=== PATIENT | female | born 1975 | race Caucasian/White ===

== ENCOUNTER 2019-07-17 13:06 | Outpatient (CLI) | payer BC, MEDICAID, SELFPAY ==
--- NOTE | ~2019-07-17 | MMUS_ITS ---
EXAMINATION: MM diagnostic leela BI w agatha, US breast BI complete HISTORY: 2 right breast lumps and one left breast lump TECHNIQUE: ML, MLO and craniocaudal 3-D tomosynthesis images of both breasts were performed and synth etic 2-D images were generated. CAD analysis was submitted and interpreted. High resolution complete bilateral breast ultrasound was performed. COMPARISON: 10/20/2018 diagnostic left digital mammogram 09/22/2018 bilateral digital screening mammogram 07/26/2016 bilateral digital screening mammogram BREAST PARENCHYMAL COMPOSITION: There are scattered areas of fibroglandular density. FINDINGS: MAMMOGRAPHIC FINDINGS: No suspicious mass, architectural distortion, malignant calcification, skin thickening or retraction or significant new or developing density of either breast is evident compared to prior examinations. ULTRASOUND: Given the history of bilateral breast lumps, complete bilateral breast ultrasound examination was per formed. Scattered bilateral subcentimeter hypoechoic and sonolucent lesions are noted, without suspicious int ernal vascularity or shadowing, the largest on the right at 10:00 measuring up to 5 mm, largest on th e left at 12:00, measuring up to 5 mm. IMPRESSION: 1. No mammographic evidence of malignancy 2. . Routine annual mammographic screening follow-up is recommended BI-RADS Category 2: Benign finding(s). Reviewed, dictated and finalized at location A. SPOTTER IMPRESSION: 1. No mammographic evidence of malignancy 2. . Routine annual mammographic screening follow-up is recommended BI-RADS Category 2: Benign finding(s).
== END 2019-07-17 13:07 | disposition home or self-care (01) ==
LOC: ANHIMG 13:18
PROVIDERS: Visit Provider Nurse Practitioner Obstetrics & Gynecology
DX: N63.10 Unspecified lump in the right breast, unspecified quadrant (principal); N63.20 Unspecified lump in the left breast, unspecified quadrant
CPT/HCPCS: 76641; 77062; 77066; G0279

== ENCOUNTER 2020-05-10 08:51 | Outpatient (CLI) | payer BC, MEDICAID, SELFPAY ==
--- NOTE | ~2020-05-10 | XR_ITS ---
[id number] 05/10/2020 09:24 Indication: Neck pain radiating to the left shoulder. No recent trauma Procedure: 3 views of the cervical spine Comparison: No prior studies for comparison. Findings: Normal cervical alignment. No fracture or traumatic malalignment. No prevertebral soft tiss ue swelling. Odontoid process within normal limits. Mild facet degenerative changes are present. Lung apices are normal. Impression: 1: Mild cervical spondylosis. Reviewed, dictated and finalized at location A. L SAMPLER Impression: 1: Mild cervical spondylosis.
== END 2020-05-10 08:52 | disposition home or self-care (01) ==
PROVIDERS: PCP Physician Assistant; Visit Provider Physician Assistant
DX: M25.519 Pain in unspecified shoulder (principal); M54.2 Cervicalgia; E66.9 Obesity, unspecified; M47.812 Spondylosis without myelopathy or radiculopathy, cervical region
CPT/HCPCS: 72040

== ENCOUNTER 2020-05-15 08:16 | Outpatient (CLI) | payer BC, MEDICAID, SELFPAY ==
--- NOTE | ~2020-05-15 | XR_ITS ---
EXAMINATION: XR shoulder LT min 2V INDICATION: Left shoulder pain TECHNIQUE: Four views of the left shoulder are submitted. COMPARISON: None FINDINGS: Normal alignment. No fracture. Glenohumeral and acromioclavicular joint spaces are normal. Soft tissues are unremarkable. IMPRESSION: 1. No acute osseous abnormality. Reviewed, dictated and finalized at location A. AIN ENGINEER
[2020-05-15 09:06] LABS: Basophils Absolute Auto 0.1 K/mm3 (0.0-0.1); Basophils Percent Auto 0.7 % (0.2-1.2); Eosinophils Absolute Auto 0.3 K/mm3 (0-0.3); Eosinophils Percent Auto 2.7 % (0-4.4); Hematocrit 38.9 % (37.0-47.0); Hemoglobin 12.3 g/dL (12.0-15.0); Immature Granulocyte Absolute 0.02 K/mm3 (0.00-0.031); Immature Granulocyte Percent A 0.2 % (0-0.5); Lymphocytes Percent Auto 31.7 % (18.3-44.2); Mean Corpuscular HGB Conc 31.6 g/dl (32-36); Mean Corpuscular Hemoglobin 26.6 pg (26-34); Mean Platelet Volume 9.4 fl (7.4-10.4); Monocytes Absolute Auto 0.5 K/mm3 (0.1-0.6); Monocytes Percent Auto 5.8 % (2.6-8.5); Neutrophils Absolute Auto 5.4 K/mm3 (1.3-6.7); Neutrophils Percent Auto 58.9 % (45.5-73.1); Platelet Count Result 310 k/mm3 (150-375); Red Blood Count 4.63 M/mm3 (4.2-5.4); White Blood Count 9.2 K/mm3 (4.5-10.0)
[2020-05-15 09:21] LABS: Alanine Aminotransferase 23 U/L (4-35); Albumin Level 4.1 g/dL (3.5-5.1); Alkaline Phosphatase 109 U/L (38-126); Anion Gap 10 mmol/L (8-16); Aspartate Amino Transferase 28 U/L (14-36); Bilirubin,Total 0.5 mg/dL (0.2-1.3); Blood Urea Nitrogen 13 mg/dL (7-17); Calcium 9.4 mg/dL (8.4-10.2); Carbon Dioxide 27 mmol/L (22-30); Chloride 102 mmol/L (98-107); Cholesterol 155 mg/dL (0-200); Estimated Glomerular Filt Rate > 60; Glucose 95 mg/dL (65-105); HDL Direct 32 mg/dL; Potassium 3.9 mmol/L (3.4-5.0); Sodium 139 mmol/L (137-145); Triglycerides 254 mg/dL (<150)
[2020-05-15 09:33] LABS: LDL Cholesterol Direct 84 mg/dL
[2020-05-15 09:59] LABS: Free T4 Free Thyroxine 0.98 ng/mL (0.78-2.19)
== END 2020-05-15 08:17 | disposition home or self-care (01) ==
LOC: ANHLAB 08:19
PROVIDERS: PCP Physician Assistant; Visit Provider Physician Assistant
DX: E66.9 Obesity, unspecified (principal); M25.512 Pain in left shoulder
CPT/HCPCS: 36415; 73030; 80053; 80061; 84439; 84443; 85025

== ENCOUNTER 2020-08-15 10:00 | Outpatient (CLI) | payer BC, MEDICAID, SELFPAY ==
--- NOTE | ~2020-08-15 | MM_ITS ---
EXAMINATION: MM screening leela BI w agatha HISTORY: Screening mammogram, family history of breast cancer in her mother. TECHNIQUE: Craniocaudal and mediolateral oblique 3-D tomosynthesis images were obtained and synthetic 2-D images were generated. CAD analysis was submitted and interpreted. COMPARISON: 08/03/2019, 10/20/2018, 09/22/2018, 07/26/2016 BREAST PARENCHYMAL COMPOSITION: There are scattered areas of fibroglandular density. FINDINGS: Scattered benign-appearing calcifications are present. There is no evidence of suspicious m ass, calcification, or architectural distortion to suggest malignancy in either breast. There has bee n no suspicious interval change. IMPRESSION: 1. No mammographic evidence of malignancy. 2. Recommend routine screening mammography in one year. BI-RADS Category 2: Benign finding(s). Reviewed, dictated and finalized at location A.
== END 2020-08-15 10:01 | disposition home or self-care (01) ==
LOC: ANHIMG 10:03
PROVIDERS: PCP Physician Assistant; Visit Provider Nurse Practitioner Obstetrics & Gynecology
DX: Z12.31 Encounter for screening mammogram for malignant neoplasm of breast (principal)
CPT/HCPCS: 77063; 77067

== ENCOUNTER 2020-11-13 08:45 | Outpatient (CLI) | payer BC, MEDICAID, SELFPAY ==
[2020-11-13 09:34] LABS: Basophils Absolute Auto 0.1 K/mm3 (0.0-0.1); Basophils Percent Auto 0.7 % (0.2-1.2); Eosinophils Absolute Auto 0.2 K/mm3 (0-0.3); Eosinophils Percent Auto 2.5 % (0-4.4); Hematocrit 36.3 % (37.0-47.0); Hemoglobin 11.4 g/dL (12.0-15.0); Immature Granulocyte Absolute 0.04 K/mm3 (0.00-0.031); Immature Granulocyte Percent A 0.4 % (0-0.5); Lymphocytes Absolute Auto 2.85 K/mm3 (0.9-3.2); Lymphocytes Percent Auto 31.9 % (18.3-44.2); Mean Corpuscular HGB Conc 31.4 g/dl (32-36); Mean Corpuscular Hemoglobin 26.5 pg (26-34); Mean Corpuscular Volume 84.4 fl (80-100); Monocytes Absolute Auto 0.5 K/mm3 (0.1-0.6); Monocytes Percent Auto 5.7 % (2.6-8.5); Neutrophils Absolute Auto 5.3 K/mm3 (1.3-6.7); Neutrophils Percent Auto 58.8 % (45.5-73.1); Platelet Count Result 261 k/mm3 (150-375); Red Cell Distribution Width 16.2 % (11.5-14.5); White Blood Count 8.9 K/mm3 (4.5-10.0)
[2020-11-13 09:58] LABS: Alanine Aminotransferase 20 U/L (4-35); Alkaline Phosphatase 100 U/L (38-126); Anion Gap 9 mmol/L (8-16); Aspartate Amino Transferase 24 U/L (14-36); Bilirubin,Total 0.3 mg/dL (0.2-1.3); Blood Urea Nitrogen 8 mg/dL (7-17); Calcium 9.5 mg/dL (8.4-10.2); Carbon Dioxide 28 mmol/L (22-30); Chloride 103 mmol/L (98-107); Cholesterol 167 mg/dL (0-200); Estimated Glomerular Filt Rate > 60; Glucose 100 mg/dL (65-105); HDL Direct 39 mg/dL; Potassium 3.7 mmol/L (3.4-5.0); Sodium 140 mmol/L (137-145); Triglycerides 355 mg/dL (<150)
[2020-11-13 10:09] LABS: LDL Cholesterol Direct 72 mg/dL
[2020-11-13 10:10] LABS: Hemoglobin A1C 5.5 % (<5.7)
== END 2020-11-13 08:46 | disposition home or self-care (01) ==
PROVIDERS: PCP Physician Assistant; Visit Provider Physician Assistant
DX: I10 Essential (primary) hypertension (principal)
CPT/HCPCS: 36415; 80053; 80061; 83036; 84443; 85025

== ENCOUNTER 2023-11-08 15:15 | Outpatient (CLI) | payer OTHER, SELFPAY ==
--- NOTE | ~2023-11-08 | MM_ITS ---
EXAMINATION: MM screening leela BI w agatha HISTORY: Screening mammogram, family history of breast cancer in her mother. TECHNIQUE: Craniocaudal and mediolateral oblique 3-D tomosynthesis images were obtained and synthetic 2-D images were generated. CAD analysis was submitted and interpreted. COMPARISON: 08/15/2020, 07/17/2019, 10/20/2018 BREAST PARENCHYMAL COMPOSITION:Not Dense. There are scattered areas of fibroglandular density. FINDINGS: No suspicious mass, calcification, or architectural distortion are identified in either josias ast to suggest malignancy. There has been no suspicious interval change. IMPRESSION: No mammographic evidence of malignancy. Recommend routine screening mammography in one year. BI-RADS Category 1: Negative Reviewed, dictated and finalized at location .
== END 2023-11-08 15:16 | disposition home or self-care (01) ==
LOC: ANHIMG 15:16
PROVIDERS: PCP Physician Assistant; Visit Provider Nurse Practitioner Obstetrics & Gynecology
DX: Z12.31 Encounter for screening mammogram for malignant neoplasm of breast (principal)
CPT/HCPCS: 77063; 77067

== ENCOUNTER 2024-07-01 13:12 | Emergency (ER) | payer OTHER, SELFPAY ==
[2024-07-01 13:26] VITALS: BP 138/85; PULSE 95; RESP 16; TEMP 36.4; O2SAT 99
--- NOTE | 2024-07-01 13:50 | ED_ITS ---
HPI - Extremity Problem General Chief complaint: Extremity Problem,Nontraumatic Stated complaint: Swollen Finger Time Seen by Provider: 07/01/24 13:35 Source: patient Mode of arrival: ambulatory Limitations: no limitations History of Present Illness HPI Narrative: Mariama is a 49-year-old female patient presenting to the clinic today with complaints of a left 4th finger swelling. She reports she thinks she may have had a a infection under the cuticle and attempted to open it up and drain it but no discharge would come out. Has swelling and tenderness over the distal left 4th finger over the cuticle. No fever or chills. Related Data Home Medications ?Medication ?Instructions ?Recorded ?Confirmed ?Last Taken ?Type albuterol sulfate 90 mcg/actuation 2 puff inhalation PRN wheezing 07/01/24 07/01/24 Unknown History aerosol inhaler atorvastatin 20 mg tablet 20 mg PO QPM 07/01/24 07/01/24 Unknown History buspirone 15 mg tablet 15 mg PO DAILY 07/01/24 07/01/24 Unknown History colestipol 1 gram tablet 1 g PO DAILY 07/01/24 07/01/24 Unknown History hydrocodone 5 mg-acetaminophen 325 1 tablet PO PRN PRN pain 07/01/24 07/01/24 U nknown History mg tablet lisinopril 20 mg tablet 20 mg PO DAILY 07/01/24 07/01/24 Unknown History lorazepam 1 mg tablet 1 mg PO PRN anxiety 07/01/24 07/01/24 Unknown History omeprazole 20 mg capsule,delayed 20 mg PO DAILY 07/01/24 07/01/24 Unknown History release paroxetine HCl 30 mg tablet 30 mg PO DAILY 07/01/24 07/01/24 Unknown History Allergies Allergy/AdvReac Type Severity Reaction Status Date / Time epinephrine Allergy Mild HIVES Verified 07/01/24 13:27 levofloxacin Allergy Unknown HIVES Verified 07/01/24 13:27 lidocaine Allergy Unknown HAD HIVES Verified 07/01/24 13:27 AFTER DENTAL PROCEDURE Review of Systems Review of Systems: Pertinent positives per HPI. Patient denies any fever, chills, rash, headache, visual changes, dizziness, cough, runny nose, sore throat, shortness of breath, chest pain, palpitations, nausea, vomiting, diarrhea, constipation, abdominal pain, or any urinary issues. PMFSH Comments At the time of my signature, I reviewed and agree with the nursing past medical, surgical, social, and family history. There is no relevant family history pertinent to the patient complaint. Exam Narrative: General: Well-developed, well nourished, in no apparent distress Head: Normocephalic, atraumatic. Cardio: Regular rate and rhythm, s1 and s2 normal, no murmur appreciated. Resp: Clear to auscultation bilaterally, no rhonchi, rales, wheezing or rubs. Musculoskeletal: No deformity, redness and swelling noted over the left 4th finger cuticle, tender to palpation over the area, no obvious discharge, grossly normal range of motion, muscle strength strong and equal, peripheral pulse strong, no edema, no cyanosis, normal gait and station Course Course Emergency Course: Portions of this record may have been created with voice recognition software. Level of Care: Express Care Visit Vital Signs Vital signs: Vital Signs Temperature 36.4 C L 07/01/24 13:26 Pulse Rate 95 07/01/24 13:26 Respiratory Rate 16 07/01/24 13:26 Blood Pressure 138/85 07/01/24 13:26 Pulse Oximetry 99 07/01/24 13:26 Temperature 36.4 C L 07/01/24 13:26 Pulse Rate 95 07/01/24 13:26 Respiratory Rate 16 07/01/24 13:26 Blood Pressure 138/85 07/01/24 13:26 Pulse Oximetry 99 07/01/24 13:26 Vital signs reviewed MDM - Extremity (Nontraumatic) MDM Narrative Medical decision making narrative: At the time of visit patient is resting comfortably on the exam table. Patient appears to be nontoxic. Plan: I suspect patient has a paronychia of the left 4th finger. Prescription for Keflex was sent to the pharmacy. Supportive measures were discussed with the patient and they voiced understanding discharge instructions and agrees to treatment plan. Return precautions reviewed Differential Diagnosis Differential diagnosis: Likely gout, cellulitis and other (Paronychia ) Discharge Plan Discharge Clinical Impression: Paronychia Patient Disposition: Home, Self-Care Condition: Stable Instructions: Antibiotic Form, Paronychia (ED) Additional Instructions: Keep area clean and dry Wash daily with soap and water Take cephalexin as prescribed Epson salts 3 to 4 times a day with warm water Follow-up with your primary care doctor in 1 week if symptoms persist Patient Language: Bolivian Prescriptions: New cephalexin 500 mg capsule 500 mg PO Q8H 7 Days Qty: 21 0RF No Action albuterol sulfate 90 mcg/actuation HFA aerosol inhaler 2 puff INHALATION PRN atorvastatin 20 mg tablet 20 mg PO QPM buspirone 15 mg tablet 15 mg PO DAILY colestipol 1 gram tablet 1 g PO DAILY hydrocodone-acetaminophen 5-325 mg tablet 1 tablet PO PRN PRN (Reason: pain) lisinopril 20 mg tablet 20 mg PO DAILY lorazepam 1 mg tablet 1 mg PO PRN omeprazole 20 mg capsule,delayed release(DR/EC) 20 mg PO DAILY paroxetine HCl 30 mg tablet 30 mg PO DAILY Follow-up/Referrals: PHYSICIAN,NET DEVELOPMENT MANAGER [Primary Care Provider] - Time of Disposition: 13:36 Quality NIHSS Nursing Documentation ED NIHSS nursing documentation: reviewed/agree
== END 2024-07-01 13:51 | disposition home or self-care (01) ==
PROVIDERS: Emergency Provider Nurse Practitioner Family
DX: L03.012 Cellulitis of left finger (principal); I10 Essential (primary) hypertension; F41.9 Anxiety disorder, unspecified; F32.A Depression, unspecified
CPT/HCPCS: 99203; G0463

== ENCOUNTER 2025-04-02 10:02 | Emergency (ER) | payer BC, SELFPAY ==
[2025-04-02 10:05] VITALS: BP 140/88; PULSE 102; RESP 20; TEMP 36.4; O2SAT 99
--- NOTE | 2025-04-02 13:29 | ED.BACK ---
HPI - Back Pain/Injury General Chief Complaint: Back Pain/Injury Stated Complaint: something popped in my back Time Seen by Provider: 04/02/25 12:03 Source: patient Mode of arrival: ambulatory Limitations: no limitations History of Present Illness HPI Narrative: This is a 50-year-old female with history of anxiety, hypertension who presents to the ED for back pain. Patient states that she picked grand son yesterday and felt pain in her left back. She has been able to ambulate since then but with some pain. She did note some numbness across her low back yesterday but this seems to have resolved. Denies fevers, chills. She does have a history of sciatica. She has hydrocodone at home but this did not help. Related Data Home Medications ?Medication ?Instructions ?Recorded ?Confirmed ?Last Taken ?Type albuterol sulfate 90 mcg/actuation 2 puff inhalation PRN wheezing 07/01/24 07/01/24 Unknown History aerosol inhaler atorvastatin 20 mg tablet 20 mg PO QPM 07/01/24 07/01/24 Unknown History buspirone 15 mg tablet 15 mg PO DAILY 07/01/24 07/01/24 Unknown History colestipol 1 gram tablet 1 g PO DAILY 07/01/24 07/01/24 Unknown History hydrocodone 5 mg-acetaminophen 325 1 tablet PO PRN PRN pain 07/01/24 07/01/24 Unknown History mg tablet lisinopril 20 mg tablet 20 mg PO DAILY 07/01/24 07/01/24 Unknown History lorazepam 1 mg tablet 1 mg PO PRN anxiety 07/01/24 07/01/24 Unknown History omeprazole 20 mg capsule,delayed 20 mg PO DAILY 07/01/24 07/01/24 Unknown History release paroxetine HCl 30 mg tablet 30 mg PO DAILY 07/01/24 07/01/24 Unknown History Allergies Allergy/AdvReac Type Severity Reaction Status Date / Time epinephrine Allergy Mild HIVES Verified 04/02/25 10:05 levofloxacin Allergy Unknown HIVES Verified 04/02/25 10:05 lidocaine Allergy Unknown HAD HIVES Verified 04/02/25 10:05 AFTER DENTAL PROCEDURE Review of Systems Review of Systems: Gen.: Denies fevers or chills Eyes: Denies eye pain or visual change ENT: Denies congestion Respiratory: Denies shortness of breath or cough CV: Denies chest pain or palpitations GI: Denies abdominal pain nausea, emesis or diarrhea denies burning, urgency, frequency or hematuria Musculoskeletal: As per HPI Neuro: Denies numbness, tingling, weakness or focal weakness Skin: Denies rash Except as documented, all other systems reviewed and negative Exam Narrative: APPEARANCE: No acute distress, nontoxic, resting in bed EYES: EOMI HEENT: Normocephalic, atraumatic, OMM RESPIRATORY: No respiratory distress Clear to auscultation bilaterally with no rhonchi wheezing or rales. CARDIOVASCULAR: Regular rate and rhythm without murmurs rubs or gallops. ABDOMINAL: Soft, nontender, nondistended, no rebound or guarding MUSCULOSKELETAl: Moves all extremities. No clubbing, cyanosis or edema. Mild tenderness to the left lumbar paraspinal musculature, no midline tenderness step-offs, deformities. NEURO: Awake and alert. Following commands, speech normal, no focal deficits SKIN:: Warm, dry. No rashes lesions or abrasions PSYCHIATRIC: Normal affect/mood, Course Vital Signs Vital signs: Vital Signs Temperature 97.6 F 04/02/25 10:05 Pulse Rate 102 H 04/02/25 10:05 Respiratory Rate 20 04/02/25 10:05 Blood Pressure 140/88 04/02/25 10:05 Pulse Oximetry 99 04/02/25 10:05 Oxygen Delivery Room Air 04/02/25 10:05 Temperature 97.6 F 04/02/25 10:05 Pulse Rate 102 H 04/02/25 10:05 Respiratory Rate 20 04/02/25 10:05 Blood Pressure 140/88 04/02/25 10:05 Pulse Oximetry 99 04/02/25 10:05 Oxygen Delivery Room Air 04/02/25 10:05 MDM - Back Pain/Injury MDM Narrative Medical decision making narrative: 50-year-old female Presenting for left-sided back pain. On initial evaluation patient was in no acute distress afebrile, hemodynamic stable. Differentials include but are not limited to: Muscle strain, lumbar radiculopathy, sciatica, pyelonephritis, kidney stone Notable exam findings: Tenderness to the paraspinal lower lumbar musculature without midline tenderness step-offs, deformities Imaging not indicated at this time as the patient has no midline changes. Her pain seems to be most related to movement so unlikely to be related to kidney stones at this time. Patient was given a dose of Toradol here in the ED. she is given prescriptions for Flexeril. She was educated on Tylenol and ibuprofen use. She was advised follow-up with her PCP in the next week for re-evaluation. Patient was agreeable to this plan. Given strict return precautions. Medical Records Attestation: I reviewed the patient's medical records. Discharge Plan Discharge Clinical Impression: Lumbar radiculopathy Strain of lumbar region Qualifiers: Encounter type: initial encounter Qualified Code(s): S39.012A - Strain of muscle, fascia and tendon of lower back, initial encounter Patient Disposition: Home Condition: Stable Instructions: Antibiotic Form, Acute Low Back Pain (ED) Additional Instructions: Take Flexeril as prescribed. He may take Tylenol and ibuprofen for pain as well. He may also take your hydrocodone the your previously prescribed. Follow-up with your PCP in the next week for re-evaluation. Apply ice to the affected area 15 minutes on 15 minutes off for the 1st 3 days then switch to heat. Return to the ED for any new or worsening symptoms. Patient Language: Azeri Prescriptions: New cyclobenzaprine 10 mg tablet 10 mg PO HS PRN (Reason: muscle spasm) Qty: 30 0RF prednisone 20 mg tablet 20 mg PO DAILY Qty: 5 0RF No Action albuterol sulfate 90 mcg/actuation HFA aerosol inhaler 2 puff INHALATION PRN atorvastatin 20 mg tablet 20 mg PO QPM buspirone 15 mg tablet 15 mg PO DAILY colestipol 1 gram tablet 1 g PO DAILY hydrocodone-acetaminophen 5-325 mg tablet 1 tablet PO PRN PRN (Reason: pain) lisinopril 20 mg tablet 20 mg PO DAILY lorazepam 1 mg tablet 1 mg PO PRN omeprazole 20 mg capsule,delayed release(DR/EC) 20 mg PO DAILY paroxetine HCl 30 mg tablet 30 mg PO DAILY cephalexin 500 mg capsule 500 mg PO Q8H 7 Days Qty: 21 0RF Follow-up/Referrals: Harish,JOSR Villar [Primary Care Provider, Unknown]
[2025-04-02] MEDS: KETOROLAC 30 MG/ML VIAL (*BKC) IM (13:41)
--- OUTSIDE RECORDS SUMMARY | 2025-04-02 17:58 | XMS_ITS | Data Portability ---
Author Organization [facility] Address [address] [place] [address] [address] Care Team Providers Care Scale Mechanic Name Role Phone NINA OCONNELL Primary Care Provider Assessment Encounter Date Assessment Date Assessment LastModified by Organization Details LastModified Time 10/27/2023 10/27/2023 Annual gynecological exam performed. Patient will come back in a year unless there are new symptoms. [email or web address] Not available 10/27/2023 11:26:22 08/07/2024 08/07/2024 Annual gynecological exam performed. Patient will come back in a year unless there are new symptoms. Not available 08/07/2024 17:14:18 Plan of Treatment Reminders Order Date Submit Date Provider Last Modified By Organization Details Last Modified Time Details Appointments None recorded. Lab test, urine 2024 025 [facility], [address], [place], [address], 11:50:36 surgical pathology study - 1) EMB 2) ECC 2024 025 [facility] (Lab), [address], [place], [address], 19:47:32 CT + NG + TV, RNA, unspecified specimen 2024 025 [facility] (Lab), [address], [place], [address], 5 19:47:31 pap, IG + HR HPV - HPV regardless but if HPV is positive need subtyping 16,18/45 2024 025 [facility] (Lab), [address], [place], [address], 16:11:11 Referral None recorded. Procedures None recorded. Surgeries None recorded. Imaging US, pelvis [address], [address], [address], [place], [address], 5 15:13:10 US, transvagina l [address], [address], [address], [place], [address], 5 15:13:10 MAMMO, screening, digital, bilateral [address], [address], [place], [address], 5 17:35:46 MAMMO, screening, bilateral [address], [address], [place], [address], 4 11:56:46 Medication Orders None recorded. Patient TargetsNo targets recorded. Patient InstructionsNo instructions recorded. Reason for Referral None Reported. 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 Infla mmato ry cell beck es (incl udes typic al repai r). Elect dieter hernandez by Ryan Mehta MD on 2023 at 12:12 PM ----- ----- ----- ----- ----- ----- ----- ----- ----- ----- ----- ----- ----- ----- ----- ----- ----- ---- HPV RESUL TS: HPV mRNA E6/E7 : No HPV mRNA Detec foreign NOTE: This high risk HPV mRNA assay detec ts fourt een high- risk HPV types (16, 18, 31, 33, 35, 39, 45, 51, 52, 56, 58, 59, 66, 68) witho ut diffe renti ation . COMME NT: This speci men was revie wed by a Cytot echno logis t and/o r Patho logis t (as indic ated in this repor t) after evalu ation using the Thinp rep Imagi ng Syste m. CLINI JADA INFOR MATIO N: Menst rual Statu s: LMP (if appli cable ): Clini jada Histo ry/Pr eviou s Pap: Type of Neopl memo (if appli cable ): Signi fican t Clini jada Findi ngs: Other Histo ry: Hormo briseida (if appli cable ): PAP EDUCA JUDI L NOTE: The Pap Test is a scree kassie test with an inher ent false negat pipe rate. Liqui d-bas ed sampl ing may decre ase, but will not elimi asia, false negat pipe resul ts. A negat pipe resul t does not precl ude the prese nce and/o r devel opmen t of disea se, since the prese nce of abnor mal cells in the sampl e depen ds on the locat ion of the lesio n and sampl ing techn ique. Germaine nued regul ar scree kassie is the best metho d of cance r preve ntion . If repor foreign cytol ogic findi ng do not corre late with physi jada and/o r histo rical findi ngs, furth er inves tigat ion is recom farzana d, as clini clint arce nted. Not Available [facility] (Lab) [address], [place], [address], 11/01/2023 13:16:22 08/08/19 25 08/07/2024 IMAGE GUIDE D PAP AND HPV REGAR DLESS image guided Pap, HPV regardless of Pap result SEE RESULT S BELOW CASE REPOR T: Cytol ogy Gynec ologi jada Repor t Case: [id number] Autho mdaina g Provi otoniel: Christin Cruz, HEALTH INFORMATICS INSTRUCTOR Colle cted: 08/07 1649 Order ing Locat ion: [place] Patho logy Recei js: 08/08 0223 First Scree n: Diana Martin, CT Rescr een: Sharron Soares, CT Patho logis t: Hortensia Dugan MD Speci men: Scree kassie Pap - Image d, Cervi x STATE MENT OF ADEQU ACY: Satis facto ry for evalu ation Trans forma tion zone compo nent absen t ----- ----- ----- ----- ----- ----- ----- ----- ----- ----- ----- ----- ----- ----- ----- ----- ----- ---- FINAL DIAGN OSIS: Negat pipe for Squam ous Intra epith elial Lesio n. Endom etria l cells prese nt in a woman over 45 years of age. Elect dieter hernandez by Hortensia Dugan MD on 2024 at 1506 CDT ----- ----- ----- ----- ----- ----- ----- ----- ----- ----- ----- ----- ----- ----- ----- ----- ----- ---- HPV RESUL TS: HPV mRNA E6/E7 : No HPV mRNA Detec foreign NOTE: This high risk HPV mRNA assay detec ts fourt een high- risk HPV types (16, 18, 31, 33, 35, 39, 45, 51, 52, 56, 58, 59, 66, 68) witho ut diffe renti ation . COMME NT: This speci men was revie wed by a Cytot echno logis t and/o r Patho logis t (as indic ated in this repor t) after evalu ation using the Thinp rep Imagi ng Syste m. CLINI JADA INFOR MATIO N: Menst rual Statu s: LMP (if appli cable ): Clini jada Histo ry/Pr eviou s Pap: Type of Neopl memo (if appli cable ): Jenii jamir t Clini jada Findi ngs: Other Histo ry: Hormo briseida (if appli cable ): PAP EDUCA JUDI L NOTE: Endom etria l cells after age 45, parti cular ly out of phase or after menop ause, may be assoc iated with benig n endom etriu m, hormo nal alter ation s and less commo nly, endom etria l/leah rine abnor malit ies. Clini jada corre latio n is recom farzana d. Not Available [facility] (Lab) [address] [facility], [place], [address], 08/13/2024 16:11:11 09/14/1909/13/2024 CT/GC AND TRICH OMONA S VAGIN GIORGI (RRNA ), URINE chlamydia trachomatis, PCR Negati ve negati ve Not Available [facility] (Lab) [address] [facility], [place], [address], 09/15/2024 19:47:31 09/14/19 25 09/13/2024 CT/GC AND TRICH OMONA S VAGIN GIORGI (RRNA ), URINE neisseria gonorrhoeae, PCR Negati ve negati ve Not Available [facility] (Lab) [address] [facility], [place], [address], 09/15/2024 19:47:31 09/14/19 25 09/13/2024 CT/GC AND TRICH OMONA S VAGIN GIORGI (RRNA ), URINE trichomonas vaginalis ribosomal RNA (rrna) Negati ve negati ve Not Available [facility] (Lab) [address] [place], [address], 09/15/2024 19:47:31 09/14/19 25 09/13/2024 SURGI JADA PATHO LOGY surgical pathology SEE RESULT S BELOW CASE REPOR T: Surgi jada Patho logy Repor t Case: [id number] Autho madina barragan Provi otoniel: Christin Cruz NP Colle cted: 09/13 1126 Order ing Locat ion: [place] Patho logy Recei js: 09/14 0321 Patho logis t: Boris Solis MD Speci mens: A) - Endom etriu m, EMB B) - Endoc ervix , ECC ----- ----- ----- ----- ----- ----- ----- ----- ----- ----- ----- ----- ----- ----- ----- ----- ----- ---- FINAL DIAGN OSIS: A. Endom etriu m, biops y: -Weak ly proli ferat pipe endom etriu m. -Sánchez gn cervi jada tissu e. -No hyper plasi a or malig macho seen. B. Endoc ervix , curet tage: -Sánchez gn endoc ervic al and ectoc ervic al tissu e. Elect dieter johnson d by Boris Solis MD on 025 at 1844 CDT ----- ----- ----- ----- ----- ----- ----- ----- ----- ----- ----- ----- ----- ----- ----- ----- ----- ---- COMME NT: The previ ous PAP smear ([id number]) is noted . CLINI JADA INFOR MATIO N: Endom etria l cells on pap smear MICRO SCOPI C DESCR IPTIO N: A micro scopi c exami natio n was perfo rmed. GROSS DESCR IPTIO N: A. Endom etriu m. The speci men is label ed with the radu nt's name, tree sheriff and EMB . Recei js in forma sergey is a 1.1 x 0.8 x 0.1 cm aggre gate of lu tissu e and mucus . The entir e speci men is submi tted in one casse tte. Gross ed by Rach Duarte on B. Endoc ervix . The speci men is label ed with the radu nt's name, demog raphi cs and ECC . Recei js in forma sergey is a 0.2 x 0.1 x 0.[address] of minut e white tissu e and mucus . It is submi tted all in one casse tte. Note the tissu e may not survi ve proce ssing Gross ed by Rach Duarte on Not Available [facility] (Lab) [address], [place], [address], 09/15/2024 19:47:32 09/14/1909/13/2024 pregn franklyn test, urine HCG negati ve Not Available [facility] [address], [place], [address], 09/13/2024 11:50:29 08/09/19 25 11/08/2023 MAMMO , scree kassie, bilat eral No observ ation record ed. [facility] [address], [place], [address], 08/08/2024 12:57:58 09/13/19 25 09/12/2024 US, pelvi s No observ ation record ed. [email or web address] [facility] [address], [place], [address], 09/12/2024 13:25:08 09/13/19 25 09/12/2024 US, trans vagin al No observ ation record ed. [email or web address] [facility] [address], [place], [address], 09/12/2024 13:25:17 09/13/19 25 09/12/2024 US, pelvi s No observ ation record ed. mann [address], [place], [address], 09/13/2024 13:56:55 Result Notes None recorded. Problems Name Problem SNOMED Code Status Onset Date Resolution Date Notes Provider Name and Address Organization Details Recorded Time Removal of intraute rine device Completed 201608/06/2020 Encounte r for removal of intraute rine contrace ptive device;R ecorded Elsewher e: No Locat ion: [facility] S ource: EHR Hat Blocker el: N Practi ce ID: 0001 Jw lable Time: 01:30:00 PM [facility] 17:15:06 Finding of menstrua l bleeding Completed 201608/06/2020 Menorrha ryan;Gil rded Elsewher e: No Locat ion: [facility] S ource: EHR Hat Blocker el: N Practi ce ID: 0001 Jw lable Time: 02:45:00 PM [facility] 17:13:51 Finding of pattern of menstrua l cycle Completed 201608/06/2020 Excessiv e and frequent menstrua tion with irregula r cycle;Pr actice ID: 0001 Toshia Iraheta [facility], [facility] 17:13:53 Polyp of corpus uteri [id number] Completed 201608/06/2020 Polyp of corpus uteri;Pr actice ID: 0001 Toshia Iraheta [facility], [facility] 17:15:01 Abnormal uterine bleeding [id number] 100 Completed 201608/06/2020 Other specifie d abnormal uterine and vaginal bleeding ;Practic e ID: 0001 oTshia conner, [facility] 17:13:44 Insertio n of intraute rine contrace ptive device Completed 201608/06/2020 Encounte r for insertio n of intraute rine contrace ptive device;P ractice ID: 0001 Toshia conner, [facility] 17:14:55 Pregnanc y test negative [id number] Completed 201608/06/2020 Encounte r for pregnanc y test, result negative ;Practic e ID: 0001 Toshia conner [facility] 17:15:03 Evaluati on finding Completed 201708/06/2020 Hematuri a, unspecif ied;Prac taty ID: 0001 Toshia conner [facility] 17:13:[address] Concept Completed 201708/06/2020 Encounte r for general adult medical exam w abnormal findings ;Practic e ID: 0001 Toshia conner [facility] 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 17:15:12 Screenin g for malignan t neoplasm of rectum Completed 201708/06/2020 Encounte r for screenin g for malignan t neoplasm of rectum;P ractice ID: 0001 Toshia conner [facility] 17:15:[address] Concept Completed 201708/06/2020 Encntr for general adult medical exam w/o abnormal findings ;Recorde d Elsewher e: No Locat ion: Hallie costello [facility] S ource: EHR Hat Blocker el: N Practi ce ID: 0001 Jw lable Time: 10:30:00 AM Toshia conner [facility] 17:15:10 Carbuncl e [id number] Completed 201708/06/2020 Carbuncl e, unspecif ied;Prac taty ID: 0001 Toshia conner [facility] 17:13:47 Evaluati on finding Completed 201808/06/2020 Oth abn and inconclu sive findings on dx imaging of breast;R ecorded Elsewher e: No [facility]: EHR Hat Blocker el: N Practi ce ID: 0001 Jw lable Time: 08:46:38 AM Toshiarm conner [facility] 17:13:48 Breast lump [id number] Completed 201908/06/2020 Unspecif ied lump in unspecif ied breast;P ractice ID: 0001 Toshia Iraheta [facility] 17:13:45 Finding of sensatio n of breast Completed 201908/06/2020 Mastodyn ia;Pract ice ID: 0001 Toshia Iraheta [facility] 17:14:52 Hypertro phy of clitoris [id number] Completed 201908/06/2020 Oth noninfla mmatory disorder s of vulva and perineum ;Practic e ID: 0001 Toshia Esequieljaxson conner [facility] 17:14:53 Problem Notes None recorded. Procedures Surgical History Date Name Laterality Status Provider Name and Address Organization Details Recorded Time 09/14/19 25 Endometrial Biopsy completed GENO Stark [address], [place], [address], [facility] 09/13/2024 11:49:53 12/04/19 22 Date of Last Mammogram completed TRUE Underwood [facility] 11/19/2024 17:01:29 02/18/20 21 Date of Last Pap Smear completed TRUE Underwood [facility] 11/19/2024 17:01:29 12/06/19 20 Hysteroscopy completed Jakob Ch MD [address], [place], [address], [facility] 12/06/2019 22:35:21 11/13/19 20 IUD Removal completed Devi Barnes [facility] [address], [place], [address], [facility] 11/13/2019 11:05:24 Hysteroscopy completed Kavita García [facility] 02/16/2020 11:28:44 Endometrial Ablation completed [facility] 02/16/2020 11:28:48 Imaging Results None recorded. Procedure Notes None recorded. Medical Equipment None Reported. Allergies Allergen ID Allergen Name Allergen Category Reaction Reaction Severity Criticality Documentation Date Start Date Code Code System Note Provider Name and Address Organization Details Recorded Time 1153 epinephri ne medicatio n hives Not available Not available 11/13/2019 3992 RxNorm [facility] 10:07:55 1154 lidocaine medicatio n hives Not available Not available 11/13/2019 6387 RxNorm Kavita conner, [facility] 0 10:08:00 Medications Name Sig Start Date Stop Date Status Note LastModified by Organization Details LastModified Time fluconazo le 100 mg tablet 03/16 completed Not Available Not Available Not Available doxycycli ne hyclate 100 mg capsule TAKE 1 CAPSULE BY MOUTH TWICE DAILY FOR 10 DAYS 10/26 completed Not Available Not Available Not Available atorvasta tin 20 mg tablet TAKE 1 TABLET BY MOUTH DAILY active Not Available Not Available No t Available tizanidin e 2 mg tablet 02/17 completed Not Available Not Available Not Available cetirizin e 10 mg tablet 08/06 completed Not Available Not Available Not Available ibuprofen 800 mg tablet Take 1 tablet 2 hours prior to procedur e 02/15 completed Not Available Not Available Not Available tizanidin e 4 mg tablet TAKE 1 TABLET BY MOUTH THREE TIMES DAILY 08/07 completed Not Available Not Available Not Available valacyclo vir 1 gram tablet 10/26 completed Not Available Not Available Not Available hydrocodo ne 5 mg-acetam inophen 325 mg tablet TAKE 1 TABLET BY MOUTH EVERY 6 HOURS NEEDED FOR MODERATE TO SEVERE PAIN 11/19 completed Not Available Not Available Not Available ondansetr on HCl 8 mg tablet Take 1 tablet 2 hours prior to procedur e 02/15 completed Not Available Not Available Not Available fluconazo le 200 mg tablet Take 1 tablet PO every other day x 3 doses. 03/16 completed Not Available Not Available Not Available Paxil 20 mg tablet 02/17 completed Not Available Not Available Not Available lisinopri l 20 mg tablet TAKE 1 TABLET BY MOUTH DAILY active Not Available Not Available No t Available prednison e 20 mg tablet 02/17 completed Not Available Not Available Not Available clobetaso l 0.05 % topical cream APPLY A THIN LAYER TO THE AFFECTED AREA(S) BY TOPICAL ROUTE 2 TIMES PER DAY 03/03 completed Not Available Not Available Not Available permethri n 5 % topical cream 02/17 completed Not Available Not Available Not Available ketorolac 10 mg tablet 03/03 completed Not Available Not Available Not Available nystatin- triamcino lone 100,000 unit/gram -0.1 % topical ointment APPLY BY TOPICAL ROUTE 2 TIMES EVERY DAY TO THE AFFECTED AREA(S) x 4 wks. 03/03 completed Not Available Not Available Not Available alprazola m 0.5 mg tablet 1 tablet by mouth prior to procedur e 02/15 completed Not Available Not Available Not Available amoxicill in 875 mg tablet 08/06 completed Not Available Not Available Not Available magnesium oxide 400 mg (241.3 mg magnesium ) tablet TAKE 1 TABLET BY MOUTH THREE TIMES DAILY 10/26 completed Not Available Not Available Not Available phenazopy ridine 100 mg tablet Take 1 tablet 3 times a day by oral route as needed for 7 days. 03/03 completed Not Available Not Available Not Available cephalexi n 500 mg capsule TAKE 1 CAPSULE BY MOUTH EVERY 8 HOURS FOR 7 DAYS 08/07 completed Not Available Not Available Not Available paroxetin e 30 mg tablet TAKE 2 TABLETS BY MOUTH DAILY active Not Available Not Available No t Available simvastat in 20 mg tablet 12/02 completed Not Available Not Available Not Available cyanocoba marco a (vit B-12) 1,000 mcg/mL injection solution ADMINIST ER 1 ML IN THE MUSCLE EVERY 30 DAYS active Not Available Not Available No t Available ferrous sulfate 325 mg (65 mg iron) tablet 11/20 completed Not Available Not Available Not Available Cipro 500 mg tablet take 1 tablet by oral route every 12 hours 06/26 completed Prescrib ed Elsewher e: No Locat ion: [facility] odify By: hever navarroer DateTime : 08/26/19 18 03:30:00 PM Not Available Not Available Not Available triamcino lone acetonide 0.1 % topical ointment APPLY THIN LAYER TOPICALL Y TO THE AFFECTED AREA TWICE DAILY FOR 7 DAYS 10/26 completed Not Available Not Available Not Available nystatin 100,000 unit/gram topical cream 02/15 completed Not Available Not Available Not Available buspirone 10 mg tablet take 1 tablet by oral route 3 times every day 06/26 completed Prescrib ed Elsewher e: Yes Loca tion: [facility] odify By: hever willinghamunter DateTime : 07/24/19 17 10:30:00 AM Not Available Not Available Not Available olopatadi ne 0.1 % eye drops 10/26 completed Not Available Not Available Not Available lisinopri l 10 mg tablet 02/17 completed Not Available Not Available Not Available triamcino lone acetonide 0.025 % topical ointment 10/26 completed Not Available Not Available Not Available gabapenti n 300 mg capsule 03/03 completed Not Available Not Available Not Available omeprazol e 20 mg capsule,d elayed release TAKE 1 CAPSULE BY MOUTH DAILY active Not Available Not Available No t Available hydroxyzi ne HCl 25 mg tablet 02/17 completed Not Available Not Available Not Available lorazepam 1 mg tablet TAKE 1 TABLET BY MOUTH DAILY NEEDED FOR ANXIETY active Not Available Not Available No t Available estradiol 0.01% (0.1 mg/gram) vaginal cream Use topicall y pea size amt to clitoral lira & affected area nightly x 1 week 10/26 completed Not Available Not Available Not Available methylpre dnisolone 4 mg tablets in a dose pack FOLLOW PACKAGE DIRECTIO NS 10/26 completed Not Available Not Available Not Available albuterol sulfate HFA 90 mcg/actua tion aerosol inhaler active Not Available Not Available Not Available Vitamin D2 1,250 mcg (50,000 unit) capsule active Not Available Not Available Not Available fluticaso ne propionat e 50 mcg/actua tion nasal spray,frances pension 03/03 completed Not Available Not Available Not Available clotrimaz ole 1 % topical cream APPLY TO THE AFFECTED AND SURROUND ING AREAS OF SKIN BY TOPICAL ROUTE 2 TIMES PER DAY IN THE MORNING AND EVENING 03/03 completed Not Available Not Available Not Available naproxen 500 mg tablet 11/19 completed Not Available Not Available Not Available BD Luer-Yinka Syringe 3 mL 21 gauge x 1 USE THIS GAUGE NEEDLE TO DRAW UP MEDICATI ON 08/07 completed Not Available Not Available Not Available diazepam 5 mg tablet 02/17 completed Not Available Not Available Not Available amoxicill in 875 mg-potass ium clavulana te 125 mg tablet 02/17 completed Not Available Not Available Not Available buspirone 15 mg tablet TAKE 1 TABLET BY MOUTH DAILY active Not Available Not Available No t Available Premarin 0.625 mg/gram vaginal cream USE TOPICALL Y PEA SIZE AMOUNT TO CLITORAL LIRA AND AFFECTED AREA NIGHTLY FOR 1 WEEK 10/26 completed Not Available Not Available Not Available cholestyr amine (with sugar) 4 gram powder for susp in a packet MIX AND DRINK 1 PACKET BY MOUTH TWICE DAILY WITH MEALS 10/26 completed Not Available Not Available Not Available nitrofura ntoin monohydra te/macroc rystals 100 mg capsule take 1 capsule by oral route every 12 hours with food 03/03 completed Not Available Not Available Not Available Flovent HFA 220 mcg/actua tion aerosol inhaler 03/03 completed Not Available Not Available Not Available pregabali n 75 mg capsule TAKE 1 CAPSULE BY MOUTH TWICE DAILY 03/03 completed Not Available Not Available Not Available Vandazole 0.75 % (37.5 mg/5 gram) vaginal gel Insert 1 applicat orful every day by vaginal route for 5 days. 03/03 completed Not Available Not Available Not Available Paxil 08/08 completed Not Available Not Available Not Available Prilosec 2.5 mg oral suspensio n,delayed release 08/06 completed Prescrib dilip costello: Yes [facility] By: kerry mayorga DateTime : 07/24/19 10:30:00 AM Not Available Not Available Not Available Slynd 4 mg (28) tablet Take 1 tablet every day by oral route. 02/15 completed LOT: [id number] EXP: 11/2021 Not Available Not Available Not Available Slynd 02/15 completed Not Available Not Available Not Available Vitals Date Recorded Body height Body mass index (BMI) Body weight Systolic And Diastolic Provider Name and Address Organization Details Last Updated DateTime 08/07/2024 154.94 cm 46.3 kg/m2 016398.41 g 137/83 mm[Hg] [facility] 08/07/2024 17:15:23 Date Recorded Body height Body mass index (BMI) Body weight Systolic And Diastolic Provider Name and Address Organization Details Last Updated DateTime 09/13/2024 154.94 cm 46.3 kg/m2 621316.13 g 153/86 mm[Hg] [facility] 09/13/2024 10:39:14 Date Recorded Body height Body mass index (BMI) Body weight Systolic And Diastolic Provider Name and Address Organization Details Last Updated DateTime 10/27/2023 152.4 cm 48.4 kg/m2 951152.47 g 135/84 mm[Hg] Diana Mason [facility] 10/27/2023 16:42:57 Date Recorded Body height Body mass index (BMI) Body weight Systolic And Diastolic Provider Name and Address Organization Details Last Updated DateTime 11/19/2024 154.94 cm 46.5 kg/m2 419899.72 g 160/85 mm[Hg] TRUE Underwood [facility] 11/19/2024 17:01:14 Social History Question Answer Notes LastModified by Organizat ion Details LastModified Time Tobacco Smoking Status Never Smoker Tina Santos [facility] 03/03/2022 16:21:42 Do You Have An Advance Directive? No [email or web address] Information n ot available 08/08/2020 How Many Years Have You Consumed Alcohol? 10 [email or web address] Information not available 08/08/2020 Are You Blind Or Do You Have Difficulty Seeing? No [email or web address] Information n ot available 08/08/2020 What Is Your Level Of Caffeine Consumption? Occasional Information not available 09/10/2020 How Much Tobacco Do You Chew? None [email or web address] Information not available 08/08/2020 In The 14 Days Before Symptom Onset, Have You Had Close Contact With A Laboratory-confirm ed COVID-19 While That Case Was Ill? No [email or web address] Information n ot available 08/08/2020 In The 14 Days Before Symptom Onset, Have You Had Close Contact With A Person Who Is Under Investigation For COVID-19 While That Person Was Ill? No [email or web address] Information not available 08/08/2020 Have You Been To An Area Known To Be High Risk For COVID-19? No [email or web address] Information not available 08/08/2020 Are You Deaf Or Do You Have Serious Difficulty Hearing? No [email or web address] Information not available 08/08/2020 What Type Of Diet Are You Following? REGULAR Information n ot available 08/08/2020 What Is The Highest Grade Or Level Of School You Have Completed Or The Highest Degree You Have Received? [id number] [email or web address] Information not available 08/08/2020 Are There Any Guns Present In Your Home? No [email or web address] Information not available 08/08/2020 Do You Use Protection During Sex? No [email or web address] Information not available 08/08/2020 Do You Use Your Seat Belt Or Car Seat Routinely? Yes Information not available 08/08/2020 Do You Have Smoke And Carbon Monoxide Detectors In Your Home? No Information not available 08/08/2020 How Much Tobacco Do You Smoke? No [email or web address] Information not available 08/08/2020 Do You Use Sunscreen Routinely? No [email or web address] Information not available 08/08/2020 Have You Used IV Drugs? No Information not available 08/08/2020 Do You Have Difficulty Walking Or Climbing Stairs? No Information not available 03/03/2022 Sex: Unknown Functional Status Question Answer Note LastModified by Organizat ion Details LastModified Time Do you use any illicit or recreational drugs? No [email or web address] Information not available 08/08/2020 What is your level of alcohol consumption? Occasional [email or web address] Information not available 08/08/2020 Are you currently employed? No [email or web address] Information not available 03/03/2022 Are you able to walk independently without assistance or assistive devices? [email or web address] Information not available 08/08/2020 Are you able to care for yourself independently? 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 No Information not available 03/03/2022 What is your exercise level? Occasional [email or web address] Information not available 12/02/2020 Mental Status Question Answer Note LastModified by Organization D etails LastModified Time Do you feel stressed (tense, restless, nervous, or anxious, or unable to sleep at night)? [id number] [email or web address] Information not available 08/08/2020 Family History Relationship Description Onset Age of this Age Resolved Age Notes LastModified by Organization Details LastModified Time Mother Carcinoma in situ of breast [email or web address] Not available 2024 16:43:42 Mother Diabetes mellitus [email or web address] Not available 2019 11:28:11 Mother Hypertensive disorder [email or web address] Not available 2019 11:28:25 Father Hypercholest erolemia [email or web address] Not available 2019 11:28:19 Brother Hypercholest erolemia [email or web address] Not available 2019 11:28:19 Maternal Grandmother Carcinoma in situ of lung [email or web address] Not available 11/2024 16:43:42 Medical History Condition Response Other Y Anemia Y High Cholesterol Y Hypertension Y Psychiatric Illness Y Gynecological History Statement/Question Response Date of Last Mammogram 12/03/2021 Flow Light Date of LMP 02/16/2023 N Was last menstrual period normal N STIs/STDs Y Date of control 12/06/2019 Date of Last Colonoscopy Abnormal Pap No On BCP's at Conception? N HPV Vaccine N Duration of Flow (days) .5 13 Current Control Method Ablation Age at First Child 13 Are cycles usually normal N Frequency of Cycle (Q days) 28 Most Recent Bone Density Sexually Active? Y Menses Monthly N Date of DEXA bone scan Age of first menstrual cycle 11 Date of Last Pap Smear 02/17/2021 Sexual Problems? Y LMP Approximate N Obstetrics History GPAL:G 4 P 4 0 0 4 Type Value Full Term 4 Living 4 Total 4 Past Encounters Encounter ID Performer Location Encounter Start Date Encounter Closed Date Diagnosis/Indication Diagnosis SNOMED-CT Code Diagnosis ICD10 Code Diagnosis IMO Codes Diagnosis Note [id number] Jakob Ch MD [facility] [address],[facility] [place] [address] 11/13/2019 09:14:26 11/13/2019 10:12:35 Abnormal uterine bleeding 9359022981 9100 N93.9 [id number] GENO [facility] [address],[facility] [place] [address] 11/13/2019 09:15:19 11/13/2019 11:39:52 Abnormal uterine bleeding 5805922840 9100 N93.9 Patient is a 44yo white female here today for F/U TVUS for AUB with IUD. IUD placed 2016. TVUS show mild displaceme nt of IUD which could be contributi ng to her current issues. She would like it pulled. She would like MD consult as does not want another IUD & does not want to continue to take BC. No excessive or heavy bleeding today. But does have random uterine cramping. Removal of intrauterine device 39236966 Z30.432 She states the symptoms are of new onset. Patient is here due to the approachin g due date or the nature of her IUD and wishes to have it removed. We discussed the timing of the replacemen t with the next bleed or the need to abstain if she no longer has regular cycles. She expressed understand ing. It was explained that she may have bleeding or spotting after the removal of the device today as well. If cannot see the strings of this device we will need to get an US image to make that the device is still in place and not in an unobtainab le position. She expressed understand ing of all the above instructio ns. Started Slynd today samples packs given but is going to schedule MD consult for possible ablation/s urgical interventi on. [id number] Jakob Ch MD [facility] [address],[facility] [place] [address] 11/21/2019 17:38:34 11/22/2019 09:12:31 Menorrhagia 806137555 N92.0 This patient is a 44-year-ol d female with severe menorrhagi a. She has failed medical treatment. She has severe symptoms that have failed medical treatment and the patient would like definitive surgical treatment. She is not a candidate for many medical treatments and if is failed Mirena IUD. After lengthy discussion that lasted over 35 minutes, we agreed to perform endometria l ablation. Her has a vasectomy. I explained the procedure to the patient in great detail. We watched a video illustrati on of the procedure. She understand s the risk. She understand s that injuries may occur. She understand s her alternativ es, risks, and benefits. She is completed the informed consent process and is ready to proceed with endometria l ablation. [id number] Jakob Ch MD [facility] [address],[place] [address] 12/06/2019 16:10:22 12/07/2019 14:51:24 Pre-surgery testing 043147067 Z01.89 Menorrhagia 416540909 N9 2.0 Endometria l relation was performed. She tolerated the procedure well. [id number] Jakob Ch MD [facility] [address],[facility] [place] [address] 12/14/2019 09:30:55 12/14/2019 10:37:54 Abnormal uterine bleeding [id number] 9100 N93.9 this patient is a 44-year-ol d female presents for follow-up after procedure. She is 1 week from a UA procedure. She had an endometria l ablation in the office. She is doing well. She has some watery vaginal discharge. It has no odor. She has minimal bleeding. She is doing well and wants to be more active. She will follow up as needed. [id number] Devi Barnes , [facility] [address] [address] 02/16/2020 11:16:10 02/18/2020 09:32:41 Gynecologic examination 18912327 Z01.419 Suggested Calcium with Vitamin D 1200-1500m g daily. Patient advised to get an annual flu shot in the fall and she could obtain at [facility] or [facility] clinic. Also to obtain TDap vaccinatio n if you have not had one in the last 10 years. Recommend yearly mammograms . Encouraged monthly self breast exams. Encourage safe sexual practices, to use condoms and limit partners if not already in a monogamous relationsh ip. Engage in daily exercise of low impact aerobic exercise 45-60 minutes 4-5 times weekly. Avoid tobacco and illicit drugs as well as using moderation with alcohol intake less than 1-2 8 oz beverages daily. This lifestyle behavior pattern will lead to less health conditions and longer life span. If BMI greater than 25 weight watchers or dietary consult advised. All questions have been answered. Patient appears to understand informatio n, but if you have any questions please call or respond to this email. Irritation of clitoris 705914918 N90.89 We agreed to update Dr. Ch regarding this finding for further imput. Will contact pt with provider khalif fonseca. Labial cyst 716468557 N9 0.7 She is to contact office to come in when cyst is actually present so we can do a swab bacterial culture of this site. Triamcinol one ointment to this area, small pea size amt, if needed. [id number] Devi Barnes , [facility] [address] [address] 08/08/2020 10:04:56 08/10/2020 17:02:56 Vaginitis 18889840 N76.0 NOTE: Labia today is fine even though still visbily right labia minora si larger than left side. Wnat her to Call us if labial swelling is at it's peak as we want to do culture if there is any drainage!! ! Ok to squeeze into schedule if it is full. patient is aware. Moisturize !!! Will treat for possible yeast Rx sent for today's complaints . 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 ?? if some of her vaginal irriation is actually perimenopa use/menopa use changes?? Consider labs as menses have gotten rcp and come q1-2mos to ensure not menpausal; will do at next visit. Consider trial of wellbutrin to see if this helps with orgasm as well. Will consider Screening mammography 24 622468 Z12.31 Not due to WWE until 02/2021 [id number] Devi Barnes [facility] [address],[place] [address] 09/10/2020 11:02:49 09/10/2020 11:41:49 Orgasm impairment 93190987 F52.31 Continue premarin cream topically 2-3x a week along with vaginal moisturizi ng daily. Follow up in 3mos to ensure results are still holding well. We will then decide if needs to continue this therapy or d/c. Rx sent. help desk supervisor to contact her for 3mos f/u appt. Total time of virtual-ZO OM visit was approx 15 mins with >50% consisting of counseling , education of patient's plan of care. 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 RTO x Oct for WWECall if need RF's of premarin Time spent in visit is a total of 15 mins with at least 50% of visit consisting of counseling and review of plan of care.Addit ional precaution casey measures were taken to minimize potential exposure to the Covid-19 virus during this patient s visit, including available hand customer operations specialist upon arrive, temperatur e check and being asked a series of screening questions. All staff wore face coverings during this encounter, as well as provided additional cleaning and sanitizing of all surfaces, including counter tops, pens, chairs, door handles, light switches, etc, prior to and following the patient s visit. [id number] Devi Barnes [facility] [address] [address] 02/17/2021 09:23:28 02/17/2021 10:38:59 Dysuria 51140274 R30.9 Suspect UTIUrine sent for cxRx sent Gynecologi c examination 88024021 Z01.419 Suggested Calcium with Vitamin D 1200-1500m g daily. Patient advised to get an annual flu shot in the fall and she could obtain at [facility] or [facility] care clinic. Also to obtain TDap vaccinatio n if you have not had one in the last 10 years. Recommend yearly mammograms . Encouraged monthly self breast exams. Encourage safe sexual practices, to use condoms and limit partners if not already in a monogamous relationsh ip. Engage in daily exercise of low impact aerobic exercise 45-60 minutes 4-5 times weekly. Avoid tobacco and illicit drugs as well as using moderation with alcohol intake less than 1-2 8 oz beverages daily. This lifestyle behavior pattern will lead to less health conditions and longer life span. If BMI greater than 25 weight watchers or dietary consult advised. All questions have been answered. Patient appears to understand informatio n, but if you have any questions please call or respond to this email. Colon-Disc ussed with PCPPap/hpv sentSTD declinedMe mmo ordered Vaginitis 75282291 N76.0 Questionab le vaginal irritation vs LS. Trial of mycolog ointment & diflucan RTO x 4wks for f/u and will consider vulvar biopsy at that time. Needs 30mins [id number] Jakob Ch MD [facility] [address],[place] [address] 02/24/2021 12:20:35 02/24/2021 13:25:30 Genital lichen sclerosus [id number] L90.0 This patient is a 45-year-ol d female with intense vulvar pruritus. She was treated previously with oral Diflucan. Her problem has become worse. There is more swelling and more pruritus. The vulva was examined. There is white epithelium and there is a swollen right labia. The white epithelium extends over the vulva and down to the anus. We agreed that she needed a biopsy but I feel it is too painful today there was too much skin destructio n. We should treat with a topical steroid-hi gh potency- for we can then perform the biopsy next week. Will also treat with a topical antifungal . [id number] Jakob Ch MD [facility] [address],[place] [address] 03/04/2021 17:16:31 03/05/2021 14:18:05 Vulvovaginitis 81950798 N76.0 this patient is a 45-year-ol d female who presents for follow-up on a vulvar concern. She had some intense vulvar pruritus. It was uncertain whether she had lichen sclerosis or severe fungal infection. Patient has noted marked improvemen t with antifungal and steroid creams. She is examined. There was marked improvemen t. There is some skin fissures in the area the clitoris. She is going to applies estrogen cream nightly until the skin heals. We agreed to continue treating with antifungal and steroid for another week. She will follow up as needed. [id number] [facility] [address],[facility] [place] [address] 03/03/2022 16:16:37 03/03/2022 16:59:51 Gynecologic examination 03065799 Z01.419 Z11.51 Suggested Calcium with Vitamin D 1200-1500m g daily. Patient advised to get an annual flu shot in the fall and she could obtain at [facility] or [facility] take care clinic. Also to obtain TDap vaccinatio n if you have not had one in the last 10 years. Recommend yearly mammograms . Encouraged monthly self breast exams. Encourage safe sexual practices, to use condoms and limit partners if not already in a monogamous relationsh ip. Engage in daily exercise of low impact aerobic exercise 45-60 minutes 4-5 times weekly. Avoid tobacco and illicit drugs as well as using moderation with alcohol intake less than 1-2 8 oz beverages daily. This lifestyle behavior pattern will lead to less health conditions and longer life span. If BMI greater than 25 weight watchers or dietary consult advised. All questions have been answered. Patient appears to understand informatio n, but if you have any questions please call or respond to this email. Pap/hpv sent STD Screen declined Genetic Screen discussed, info given, will consider Colon Screen PCP Dexa Screen PCP Routine Labs PCPMammo WNL Pruritus of vulva 850877 00 L29.2 Will repeat previous treatment that seems to work for her as ordered below.Will return in 1wks to see how she is doing.Will consider vulvar bx of this area since it seems to be a long standing recurring issue and very localized. Can discuss perimenopa use sx's at her return visit. [id number] Devi Barnes , [facility] [address] [address] 10/27/2023 16:26:53 10/28/2023 14:25:40 Gynecologic examination 70368032 Z01.419 Z11.51 Suggested Calcium with Vitamin D 1200-1500m g daily. Patient advised to get an annual flu shot in the fall and she could obtain at [facility] or [facility] clinic. Also to obtain TDap vaccinatio n if you have not had one in the last 10 years. Recommend yearly mammograms . Encouraged monthly self breast exams. Encourage safe sexual practices, to use condoms and limit partners if not already in a monogamous relationsh ip. Engage in daily exercise of low impact aerobic exercise 45-60 minutes 4-5 times weekly. Avoid tobacco and illicit drugs as well as using moderation with alcohol intake less than 1-2 8 oz beverages daily. This lifestyle behavior pattern will lead to less health conditions and longer life span. If BMI greater than 25 weight watchers or dietary consult advised. All questions have been answered. Patient appears to understand informatio n, but if you have any questions please call or respond to this email. Pap/hpv sentSTD Screen declinedGe netic Screen discussed, info given, will considerCo gonzalo Screen PCPDexa Screen PCPRoutine Labs PCPMammo ordered Screening mammography 24 784876 Z12.31 Family his tory of breast cancer 681784261 Z80.3 [id number] GENO Stark [facility] [address] [address] 08/07/2024 16:55:14 08/08/2024 23:03:04 Gynecologic examination 22478927 Z01.419 WWEBC - partner with vasectomyP ap - done todaySTI screen - declinedMa mmogram - order givenColon cancer screening - cologuard UTD/PCPDex a - n/aRoutine labs - UTD/PCPRTC in 1 yr or sooner if needed Do monthly self breast exams.It is advised to get annual flu shot in the fall and she could obtain at local pharmacy. If you haven't received the Tdap vaccine in the last 10 years you should obtain one as well.Have mammogram yearly, bone density every 2-3 years and stay up to date on colon cancer screening. Engage in regular exercise. Avoid tobacco and illicit drugs. This lifestyle behavior pattern will lead to less health conditions and longer life span. If BMI greater than 25 dietary consult advised.Qu estions have been answered. Screening for malignant neoplasm of breast 501719465 Z12.39 [id number] Jakob Ch MD [facility] [address] [address] 09/12/2024 09:42:39 09/12/2024 10:33:39 Abnormal uterine bleeding 4765866670 9100 N93.9 R87.618 [id number] this patient is a 44-year-ol d female presents for follow-up after procedure. She is 1 week from a UA procedure. She had an endometria l ablation in the office. She is doing well. She has some watery vaginal discharge. It has no odor. She has minimal bleeding. She is doing well and wants to be more active. She will follow up as needed. [id number] GENO Stark [facility] [address] [address] 09/13/2024 10:17:40 09/13/2024 13:40:35 Abnormal cervical Papanicolaou smear 467226349 R87.619 [id number] Pelvic u/s reviewed with ptEMB discussed with pt, r/b reviewedUP T (-)ECC and EMB performed - see procedure notediscus sed options pending resultsshe opts to pursue MD consult, scheduled to RTCquestio ns answered, precaution s discussedB P precaution s reviewed, encouraged PCP f/u Time spent in visit is a total of 30 mins with at least 50% of visit consisting of counseling and review of plan of care. Venereal d isease screening 454366891 Z11.3 [id number] CLAUDIA UMAÑA MD [facility] [address] [address] 11/19/2024 16:43:00 11/20/2024 14:22:52 Abnormal cervical Papanicolaou smear 196512572 R87.618 [id number] - pap with endometria l cells- EMB weakly proliferat pipe endometriu m, c/w irregular cycles with perimenopa use- no need for further workup- patient to call if bleeding worsens Reduced libido 5615304 R 68.82 [id number] - denies dyspareuni a- no improvemen t with OTC supplement s or vaginal estrogen- will send rx to [facility] for arousal cream Health Concerns Section Related Observation LastModified by Organization Detai ls LastModified Time None Recorded Concern Status LastModified by Organization Details LastModified Time None Recorded Advance Directives Directive N: Payers Insurance Date Sequence Insurance Name Policy Number Policy Mcneil Covered Member ID Mcneil Member ID Guarantor Name 10/25/2023 1 [place] [id number] Trevor Blank [id number] Elizabeth Blank 08/06/2024 1 [place] Elizabeth Blank [id number] Elizabeth Blank 11/17/2024 1 NORINA [id number] Elizabeth Blank [id number] Elizabeth Blank 08/06/2024 [facility] (MEDICAID HMO) [id number] Elizabeth Blank [id number] Elizabeth Blank 10/25/2023 1 [place] [id number] Trevor Blank [id number] Elizabeth Blank Notes Date Note Type Note Provider Name and Address Organization Details Recorded Time 4 text/html Annual GYNReported by PatientGenitourinary symptomsFor menstrual cycle, patient reportsnormal menses. For urinary symptoms, patient reportsno hematuriaandno incontinence. For vulva, patient reportsno genital lesion. For vagina, patient reportsnormal vaginal discharge.Breast symptomsFor breast, patient reportsno breast pain,no breast lump, andno nipple discharge.ContraceptionFo r current contraception, patient reportstubal ligation.Endocrine symptomsFor sexual complaints, patient reportsno sexual complaints,no pain during intercourse, andnormal libido. For menopausal symptoms, patient reportsno menopausal symptomsandnormal vaginal lubrication.Psychological symptomsFor psychological symptoms, patient reportsno depression,no anxiety, andno pmdd.Preventative measuresFor preventive measures, patient reportsencourage self breast examination,encourage regular exercise,encourage no tobacco use,encourage regular mammograms starting age 40,followed with yearly pap smears,needs to schedule mammogram, andneeds to schedule colonoscopy. Devi Barnes, SHARON- [address], [place], [address], [facility] 10/27/2023 18:16:28 5 text/html Annual GYNReported by PatientGenitourinary symptomsFor menstrual cycle, patient reportsperimenopausal(per iods every 1-3 months). For urinary symptoms, patient reportsno hematuriaandno incontinence. For vulva, patient reportsno genital lesion. For vagina, patient reportsnormal vaginal discharge.Breast symptomsFor breast, patient reportsno breast pain,no breast lump, andno nipple discharge.Endocrine symptomsFor sexual complaints, patient reportsno sexual complaints,no pain during intercourse, andnormal libido. For menopausal symptoms, patient reportsno menopausal symptomsandnormal vaginal lubrication.Psychological symptomsFor psychological symptoms, patient reportsno depression,no anxiety, andno pmdd.Preventative measuresFor preventive measures, patient reportsencourage self breast examination,encourage regular exercise,encourage no tobacco use, andencourage regular mammograms starting age [age]yo wweBC - partner with vasectomyh/o ablationperiomenopausal, periods every 1-3 monthslast pap 2023 : nilm, HPV (-)h/o abnormal paps requiring procedure in the past (unknown year per pt)mammogram last 4cologuard UTD per pt GENO Stark [address], [place], [address], [facility] 08/08/2024 11:52:04 5 text/html 49yopresents for u/s f/u and EMBs/p pap done 08/07/2024 : nilm, HPV (-) : endometrial cells presenth/o endometrial ablation / perimenopausal, periods every 1-3for the past 1 yr periods have become heavier/more painful GENO Stark [address], [place], [address], [facility] 09/13/2024 13:40:22 5 text/html ROS as noted in the HPI Patient presents for follow up after EMB for endometrial cells on pap smear. She underwent EMB that showed weakly proliferative endometrium, consistent with perimenopause. Has irregular light periods, hx of ablation. No heavy bleeding or cramping. She also reports low libido. She has tried OTC supplements without improvement. Denies pain with sex. Some decreased sensation, has tried vaginal estrogen in the past without improvement. CLAUDIA UMAÑA MD [address], [place], [address], [facility] 11/20/2024 12:11:03 OBGyn Episode Ob Episode Information Episode Created Date Number of Fetuses Patient Bloodtype Patient rh Status Prepregnancy Weight lbs Domestic Partner Domestic Partner Phone Father Name Chief Pharmacist Status 02/16/20 20 1 CLOSED Fetus Data First Name Last Name Admitted to NICU Weight (g) Sex Living Outcome Pediatric Complications Fetus ID Race Codes Race Delivery Type 3175.14 4 F Full Term 4997 Vaginal Delivery Ben Calculation Initial Ben Date Initial Exam Date Initial Exam Provider Initial Ultrasound Date Last Menstrual Period Date Ultra Sound Weeks Gestation 0 Eighteen To Twenty Week Ben Update Ultra Sound Date Fundal Height At Umbil Quickening Date Ultra Sound Latest Weeks Gestation Final Ben Confirmed By Final Ben Confirmed Date Final Ben Date Ultra Sound Latest Days Gestation 0 0 Menstrual History Last Menstrual Date Menses Monthly On Bcp Conception Prior Menses Frequency Hcg Plus Date Menarche Onset Age Delivery Information Delivery Date Delivery Type Labor Anesthesia Weeks Gestation Incision Type Labor Labor Length Hrs Delivered By Post Complications Tubal Sterilization Discharge Date Comments 3 40 Discharge Information Feeding Method Contraceptive Method Maternal HG B and HCT Levels Ob Episode Information Episode Created Date Number of Fetuses Patient Bloodtype Patient rh Status Prepregnancy Weight lbs Domestic Partner Domestic Partner Phone Father Name Chief Pharmacist Status 02/16/20 20 1 CLOSED Fetus Data First Name Last Name Admitted to NICU Weight (g) Sex Living Outcome Pediatric Complications Fetus ID Race Codes Race Delivery Type 2863.07 2704 M Full Term 4998 Vaginal Delivery Ben Calculation Initial Ben Date Initial Exam Date Initial Exam Provider Initial Ultrasound Date Last Menstrual Period Date Ultra Sound Weeks Gestation 0 Eighteen To Twenty Week Ben Update Ultra Sound Date Fundal Height At Umbil Quickening Date Ultra Sound Latest Weeks Gestation Final Ben Confirmed By Final Ben Confirmed Date Final Ben Date Ultra Sound Latest Days Gestation 0 0 Menstrual History Last Menstrual Date Menses Monthly On Bcp Conception Prior Menses Frequency Hcg Plus Date Menarche Onset Age Delivery Information Delivery Date Delivery Type Labor Anesthesia Weeks Gestation Incision Type Labor Labor Length Hrs Delivered By Post Complications Tubal Sterilization Discharge Date Comments 0 40 Discharge Information Feeding Method Contraceptive Method Maternal HG B and HCT Levels Ob Episode Information Episode Created Date Number of Fetuses Patient Bloodtype Patient rh Status Prepregnancy Weight lbs Domestic Partner Domestic Partner Phone Father Name Chief Pharmacist Status 02/16/20 20 1 CLOSED Fetus Data First Name Last Name Admitted to NICU Weight (g) Sex Living Outcome Pediatric Complications Fetus ID Race Codes Race Delivery Type 2948.34 8 F Full Term 4999 Vaginal Delivery Ben Calculation Initial Ben Date Initial Exam Date Initial Exam Provider Initial Ultrasound Date Last Menstrual Period Date Ultra Sound Weeks Gestation 0 Eighteen To Twenty Week Ben Update Ultra Sound Date Fundal Height At Umbil Quickening Date Ultra Sound Latest Weeks Gestation Final Ben Confirmed By Final Ben Confirmed Date Final Ben Date Ultra Sound Latest Days Gestation 0 0 Menstrual History Last Menstrual Date Menses Monthly On Bcp Conception Prior Menses Frequency Hcg Plus Date Menarche Onset Age Delivery Information Delivery Date Delivery Type Labor Anesthesia Weeks Gestation Incision Type Labor Labor Length Hrs Delivered By Post Complications Tubal Sterilization Discharge Date Comments 3 38 Discharge Information Feeding Method Contraceptive Method Maternal HG B and HCT Levels Ob Episode Information Episode Created Date Number of Fetuses Patient Bloodtype Patient rh Status Prepregnancy Weight lbs Domestic Partner Domestic Partner Phone Father Name Chief Pharmacist Status 02/16/20 20 1 CLOSED Fetus Data First Name Last Name Admitted to NICU Weight (g) Sex Living Outcome Pediatric Complications Fetus ID Race Codes Race Delivery Type 2834.95 F Full Term 5000 Vaginal Delivery Ben Calculation Initial Ben Date Initial Exam Date Initial Exam Provider Initial Ultrasound Date Last Menstrual Period Date Ultra Sound Weeks Gestation 0 Eighteen To Twenty Week Ben Update Ultra Sound Date Fundal Height At Umbil Quickening Date Ultra Sound Latest Weeks Gestation Final Ben Confirmed By Final Ben Confirmed Date Final Ben Date Ultra Sound Latest Days Gestation 0 0 Menstrual History Last Menstrual Date Menses Monthly On Bcp Conception Prior Menses Frequency Hcg Plus Date Menarche Onset Age Delivery Information Delivery Date Delivery Type Labor Anesthesia Weeks Gestation Incision Type Labor Labor Length Hrs Delivered By Post Complications Tubal Sterilization Discharge Date Comments 6 38 Discharge Information Feeding Method Contraceptive Method Maternal HG B and HCT Levels
== END 2025-04-02 13:48 | disposition home or self-care (01) ==
PROVIDERS: Emergency Provider Student in an Organized Health Care Education/Training Program; PCP Physician Assistant
DX: S39.012A Strain of muscle, fascia and tendon of lower back, initial encounter (principal); M54.16 Radiculopathy, lumbar region; F41.9 Anxiety disorder, unspecified; I10 Essential (primary) hypertension; X50.0XXA Overexertion from strenuous movement or load, initial encounter
CPT/HCPCS: 96372; 99283; J1885